=== PATIENT | female | born 1980 | race Caucasian/White ===

== ENCOUNTER 2017-04-23 19:28 | Inpatient (IN) | payer MEDICAID ==
[~2017-04-23] VITALS: Ht 157.5 cm; Wt 57.6 kg
[2017-04-23 21:09] LABS: BASOPHIL % 1.4 % (0-2); PLATELET COUNT 243 x10^3mcL (130-400)
[2017-04-23 21:18] LABS: CARBON DIOXIDE 28.6 mmol/L (21-32); CHLORIDE SERUM 100 mmol/L (98-107); CREATININE SERUM 0.6 mg/dL (0.6-1.0); GFR1 > 60 mL/min; GLUCOSE SERUM 112 mg/dL (74-106); POTASSIUM SERUM 3.6 mmol/L (3.5-5.1); SODIUM SERUM 138 mmol/L (136-145)
[2017-04-23 21:22] LABS: ALBUMIN 3.9 g/dL (3.4-5.0); ALKALINE PHOSPHATASE 77 U/L (46-116); ALT/SGPT 29 U/L (14-59); AST/SGOT 24 U/L (15-37); BILIRUBIN TOTAL 0.4 mg/dL (0.20-1.00); LIPASE 196 IU/L (73-393)
[2017-04-23 21:24] LABS: TOTAL PROTEIN, SERUM 8.3 g/dL (6.4-8.2)
[2017-04-23 21:30] LABS: RED CELL DISTRIBUTION WIDTH 20.9 % (11.5-14.5)
[2017-04-23 21:51] LABS: microscopic required? NO
[2017-04-23 21:59] LABS: rbc morphology (normal/abnorm) ABNORMAL (NORMAL); target cell (codocyte) 2+
[2017-04-23 22:03] LABS: UA SPECIFIC GRAVITY <=1.005 (1.005-1.035); urine erythrocyte NEGATIVE (NEGATIVE)
[2017-04-23 23:05] VITALS: BP 118/67
[2017-04-24] VITALS (7 sets, daily range): BP systolic 91–115; BP diastolic 53–67
[2017-04-24 00:40] LABS: MAGNESIUM 2.5 mg/dL (1.8-2.4); PHOSPHOROUS 4.3 mg/dL (2.5-4.9); T3 TOTAL 1.02 ng/mL
[2017-04-24 00:55] LABS: IRON 16 ug/dL (50-170); TOTAL IRON BINDING CAPACITY 609 ug/dL (250-450)
[2017-04-24 01:13] LABS: FREE T4 1.31 ng/dL (0.76-1.46); FREE THYROXINE INDEX 3.5 ug/dL (1.4-4.5)
[2017-04-24 01:39] LABS: RED BLOOD CELLS 3.56 M/mm3 (4.10-5.10)
[2017-04-24 06:40] LABS: CALCIUM 8.6 mg/dL (8.5-10.1); CARBON DIOXIDE 26.9 mmol/L (21-32); CHLORIDE SERUM 104 mmol/L (98-107); CREATININE SERUM 0.6 mg/dL (0.6-1.0); GFR1 > 60 mL/min; GLUCOSE SERUM 93 mg/dL (74-106); MAGNESIUM 2.4 mg/dL (1.8-2.4); PHOSPHOROUS 4.3 mg/dL (2.5-4.9); POTASSIUM SERUM 3.6 mmol/L (3.5-5.1); SODIUM SERUM 138 mmol/L (136-145)
[2017-04-24 07:15] LABS: PLATELET COUNT 272 x10^3mcL (130-400)
[2017-04-24 07:24] LABS: RED CELL DISTRIBUTION WIDTH 21.4 % (11.5-14.5)
[2017-04-24 08:12] LABS: BAND NEUTROPHIL 2 % (0-10); BASOPHIL 0 % (0-2); MONOCYTE 6 % (0-7); SEGMENTED NEUTROPHILS 49 % (37-75)
[2017-04-24 08:13] LABS: PLATELET MORPHOLOGY PLATELETS NORMAL; rbc morphology (normal/abnorm) ABNORMAL (NORMAL)
[2017-04-25] VITALS (7 sets, daily range): BP systolic 101–122; BP diastolic 41–64
[2017-04-25 07:08] LABS: CALCIUM 8.3 mg/dL (8.5-10.1); CARBON DIOXIDE 25.9 mmol/L (21-32); CHLORIDE SERUM 103 mmol/L (98-107); CREATININE SERUM 0.7 mg/dL (0.6-1.0); GFR1 > 60 mL/min; GLUCOSE SERUM 131 mg/dL (74-106); POTASSIUM SERUM 3.1 mmol/L (3.5-5.1); SODIUM SERUM 137 mmol/L (136-145)
[2017-04-25 07:11] LABS: PLATELET COUNT 247 x10^3mcL (130-400)
[2017-04-25 07:13] LABS: RED CELL DISTRIBUTION WIDTH 21.3 % (11.5-14.5)
[2017-04-25 08:06] LABS: ATYPICAL LYMPH 2 %; BAND NEUTROPHIL 1 % (0-10); BASOPHIL 0 % (0-2); MONOCYTE 5 % (0-7); SEGMENTED NEUTROPHILS 51 % (37-75)
[2017-04-25 08:07] LABS: rbc morphology (normal/abnorm) ABNORMAL (NORMAL)
[2017-04-25 08:08] LABS: ovalocyte/elliptocyte 1+; tear drop cell (dacryocyte) 1+
[2017-04-25 13:44] LABS: PLATELET COUNT 218 x10^3mcL (130-400)
[2017-04-25 13:53] LABS: ATYPICAL LYMPH 1 %; BASOPHIL 0 % (0-2); SEGMENTED NEUTROPHILS 55 % (37-75)
[2017-04-25 13:54] LABS: BAND NEUTROPHIL 2 % (0-10); MONOCYTE 7 % (0-7); rbc morphology (normal/abnorm) ABNORMAL (NORMAL)
[2017-04-25 13:55] LABS: ovalocyte/elliptocyte 1+; tear drop cell (dacryocyte) 1+
[2017-04-26] VITALS (7 sets, daily range): BP systolic 101–115; BP diastolic 49–65
[2017-04-26 01:21] LABS: BASOPHIL % 1.4 % (0-2); PLATELET COUNT 222 x10^3mcL (130-400); RED CELL DISTRIBUTION WIDTH 21.9 % (11.5-14.5)
[2017-04-26 01:36] LABS: rbc morphology (normal/abnorm) ABNORMAL (NORMAL); tear drop cell (dacryocyte) 1+
[2017-04-26 01:37] LABS: ovalocyte/elliptocyte 1+
[2017-04-26 07:16] LABS: BASOPHIL % 0.7 % (0-2); PLATELET COUNT 267 x10^3mcL (130-400)
[2017-04-26 07:27] LABS: RED CELL DISTRIBUTION WIDTH 25.8 % (11.5-14.5)
[2017-04-26 14:19] LABS: rbc morphology (normal/abnorm) ABNORMAL (NORMAL)
[2017-04-26 14:20] LABS: ovalocyte/elliptocyte 1+
[2017-04-27 01:58] VITALS: BP 115/56
[2017-04-27 06:05] VITALS: BP 111/57
[2017-04-27 06:46] LABS: BASOPHIL % 1.2 % (0-2); PLATELET COUNT 281 x10^3mcL (130-400)
[2017-04-27 06:47] LABS: CALCIUM 8.9 mg/dL (8.5-10.1); CARBON DIOXIDE 25.5 mmol/L (21-32); CHLORIDE SERUM 104 mmol/L (98-107); CREATININE SERUM 0.6 mg/dL (0.6-1.0); GFR1 > 60 mL/min; GLUCOSE SERUM 88 mg/dL (74-106); MAGNESIUM 2.4 mg/dL (1.8-2.4); PHOSPHOROUS 4.1 mg/dL (2.5-4.9); POTASSIUM SERUM 3.7 mmol/L (3.5-5.1); SODIUM SERUM 139 mmol/L (136-145)
[2017-04-27 06:53] LABS: RED CELL DISTRIBUTION WIDTH 26.6 % (11.5-14.5)
[2017-04-27 06:55] LABS: rbc morphology (normal/abnorm) ABNORMAL (NORMAL)
[2017-04-27 06:56] LABS: ovalocyte/elliptocyte 1+; tear drop cell (dacryocyte) 1+
[2017-04-27 09:21] VITALS: BP 129/82
[2017-04-27] MEDS ORDERED: FERROUS GLUCON324 M1 PO (14:07)
[2017-04-27] MEDS ORDERED: PHARMASSURE VI500 MG PO (14:07)
[2017-04-27] MEDS ORDERED: COL100 PO (14:10)
[2017-04-27] MEDS ORDERED: NOR10T PO (14:12)
[2017-04-27] MEDS ORDERED: ZOFRAN4 M3 PO (14:12)
[2017-04-27 14:48] VITALS: BP 129/82
== END 2017-04-27 16:04 | disposition home or self-care (01) ==
LOC: ED 19:28 → DU 22:16 → MU 22:44 → DU 22:44 → MU 04-25 11:31 → DU 04-26 05:16 → MU 04-26 17:52
PROVIDERS: Emergency Medicine; Family Medicine; ADMIT Family Medicine
PROC: 30233N1 Transfusion of Nonautologous Red Blood Cells into Peripheral Vein, Percutaneous Approach (ICD-10-PCS; principal; 2017-04-25)
DX: K80.20 Calculus of gallbladder without cholecystitis without obstruction (principal); D61.818 Other pancytopenia; K56.609 Unspecified intestinal obstruction, unspecified as to partial versus complete obstruction; E78.1 Pure hyperglyceridemia; D25.9 Leiomyoma of uterus, unspecified; N83.201 Unspecified ovarian cyst, right side; D50.9 Iron deficiency anemia, unspecified; Z68.24 Body mass index [BMI] 24.0-24.9, adult
CPT/HCPCS: 83880; 84439; 87046; 87046-59; J1885; J2405; J2916; J3480; J7030; J7040; P9016; Q0092; Q0162; Q0163; Q9967

== ENCOUNTER 2018-05-16 23:08 | Inpatient (IN) | payer MEDICAID ==
[~2018-05-16] VITALS: Ht 160 cm; Wt 62.8 kg
[~2018-05-16 23:08] MED LIST: COL100 PO; FERROUS GLUCON324 M1 PO; NOR10T PO; PHARMASSURE VI500 MG PO; ZOFRAN4 M3 PO
[2018-05-16 23:37] VITALS: Ht 160 cm; Wt 62.8 kg
[2018-05-17 02:57] LABS: CALCIUM 8.6 mg/dL (8.5-10.1); CARBON DIOXIDE 25.7 mmol/L (21-32); CHLORIDE SERUM 101 mmol/L (98-107); CREATININE SERUM 0.6 mg/dL (0.6-1.0); GFR1 > 60 mL/min; GLUCOSE SERUM 117 mg/dL (74-106); POTASSIUM SERUM 3.2 mmol/L (3.5-5.1); SODIUM SERUM 139 mmol/L (136-145)
[2018-05-17 03:04] LABS: ALBUMIN 3.9 g/dL (3.4-5.0); ALKALINE PHOSPHATASE 66 U/L (46-116); ALT/SGPT 27 U/L (14-59); AST/SGOT 26 U/L (15-37); BILIRUBIN TOTAL 0.5 mg/dL (0.20-1.00); LIPASE 166 IU/L (73-393); TOTAL PROTEIN, SERUM 7.9 g/dL (6.4-8.2)
[2018-05-17 03:25] LABS: PLATELET COUNT 249 x10^3mcL (130-400)
[2018-05-17 03:26] LABS: BASOPHIL % 1 % (0-2)
[2018-05-17 03:39] LABS: rbc morphology (normal/abnorm) ABNORMAL (NORMAL)
[2018-05-17 07:43] LABS: MAGNESIUM 2.2 mg/dL (1.8-2.4); PHOSPHOROUS 4.2 mg/dL (2.5-4.9)
[2018-05-17 09:17] LABS: BASOPHIL % 1.3 % (0-2); PLATELET COUNT 238 x10^3mcL (130-400)
[2018-05-17 09:25] LABS: RED CELL DISTRIBUTION WIDTH 21.1 % (11.5-14.5)
[2018-05-17 10:35] VITALS: BP 115/63
[2018-05-17 12:30] VITALS: BP 120/60
[2018-05-17 12:47] VITALS: BP 120/60
[2018-05-17 12:57] VITALS: BP 115/63
[2018-05-17 14:23] LABS: rbc morphology (normal/abnorm) ABNORMAL (NORMAL)
[2018-05-17 14:25] LABS: ovalocyte/elliptocyte 2+
[2018-05-17 14:44] LABS: PLATELET COUNT 228 x10^3mcL (130-400)
[2018-05-17 14:48] LABS: RED CELL DISTRIBUTION WIDTH 25.9 % (11.5-14.5)
[2018-05-17 15:30] LABS: SEGMENTED NEUTROPHILS 61 % (37-75)
[2018-05-17 15:31] LABS: BAND NEUTROPHIL 3 % (0-10); MONOCYTE 9 % (0-7)
[2018-05-17 15:33] LABS: ovalocyte/elliptocyte 2+; rbc morphology (normal/abnorm) ABNORMAL (NORMAL); tear drop cell (dacryocyte) 1+
[2018-05-17 15:34] LABS: PLATELET MORPHOLOGY PLATELETS NORMAL
[2018-05-17 17:17] VITALS: BP 125/75
[2018-05-17 20:47] VITALS: BP 117/61
[2018-05-18 06:12] VITALS: BP 108/58
[2018-05-18 06:36] LABS: BASOPHIL % 0.2 % (0-2); PLATELET COUNT 234 x10^3mcL (130-400)
[2018-05-18 06:47] LABS: RED CELL DISTRIBUTION WIDTH 25.2 % (11.5-14.5); rbc morphology (normal/abnorm) ABNORMAL (NORMAL)
[2018-05-18 06:54] LABS: CALCIUM 8.2 mg/dL (8.5-10.1); CARBON DIOXIDE 27.3 mmol/L (21-32); CHLORIDE SERUM 104 mmol/L (98-107); CREATININE SERUM 0.5 mg/dL (0.6-1.0); GFR1 > 60 mL/min; GLUCOSE SERUM 86 mg/dL (74-106); POTASSIUM SERUM 3.9 mmol/L (3.5-5.1); SODIUM SERUM 137 mmol/L (136-145)
[2018-05-18 07:33] VITALS: BP 100/50
[2018-05-18 09:01] LABS: UA SPECIFIC GRAVITY 1.015 (1.005-1.035); microscopic required? YES; urine erythrocyte 2+ (NEGATIVE)
[2018-05-18] MEDS ORDERED: FERROUS GLUCON324 M1 PO (10:31)
[2018-05-18 10:43] VITALS: BP 100/50
[2018-05-18 11:57] VITALS: BP 105/64
== END 2018-05-18 16:01 | disposition home or self-care (01) | DRG 517 ==
LOC: ED 23:08 → DU 05-17 03:55
PROVIDERS: Emergency Medicine; General Practice; Obstetrics & Gynecology
PROC: 30233N1 Transfusion of Nonautologous Red Blood Cells into Peripheral Vein, Percutaneous Approach (ICD-10-PCS; 2018-05-17)
PROC: 0UDB7ZZ Extraction of Endometrium, Via Natural or Artificial Opening (ICD-10-PCS; principal; 2018-05-17 18:00)
DX: D25.9 Leiomyoma of uterus, unspecified (principal); D62 Acute posthemorrhagic anemia; N92.1 Excessive and frequent menstruation with irregular cycle; E87.6 Hypokalemia
CPT/HCPCS: C1758; J1050; J1885; J2060; J2250; J3010; J7030; J7040; P9016; Q0162; Q0163

== ENCOUNTER 2019-03-02 20:20 | Inpatient (IN) | payer MEDICAID ==
[~2019-03-02] VITALS: Ht 162.6 cm; Wt 62.7 kg
[2019-03-02 20:29] VITALS: Ht 162.6 cm; Wt 62.7 kg
--- NOTE | 2019-03-02 21:50 | NUR ---
DR MIRANDA AT THE BEDSIDE FOR MSE.
--- NOTE | 2019-03-02 22:30 | NUR ---
PT BIB SELF C/O C/O PERIUMBILICAL ABDOMINAL PAIN, NAUSEA AND CONSTIPATION X5 DAYS. PT DENIES ANY INJURY OR URINARY ISSUES. PT IS AAOX4, NO DISTRESS NOTED, RESP E/U, SKIN INTACT WARM PINK AND DRY. PT GOWNED AND PLACED ON MONITOR. MSE COMPLETED BY . BED IN LOWEST POSITION, SIDERAIL X2 UP FOR SAFETY, AND CALL GODINEZ WITHIN REACH. WILL CONT TO MONITOR.
--- NOTE | 2019-03-02 22:45 | NUR ---
PT MEEDICATED PER MD ORDERS, SEE EMAR, IV FLUIDS INFUSINGM, NO INFILTRATION TX PAIN NOTED. PT VERBALIZED UNDERSTANDING OF MEDICATION TEACHING.
[2019-03-02 23:13] LABS: PLATELET COUNT 297 x10^3mcL (130-400)
[2019-03-02 23:14] LABS: ALBUMIN 4.5 g/dL (3.4-5.0); ALKALINE PHOSPHATASE 87 U/L (46-116); ALT/SGPT 30 U/L (14-59); AST/SGOT 19 U/L (15-37); BILIRUBIN TOTAL 0.57 mg/dL (0.20-1.00); CALCIUM 8.8 mg/dL (8.5-10.1); CHLORIDE SERUM 102 mmol/L (98-107); CREATININE SERUM 0.6 mg/dL (0.6-1.0); GFR1 > 60 mL/min; GLUCOSE SERUM 110 mg/dL (74-106); LIPASE 141 IU/L (73-393); POTASSIUM SERUM 3.9 mmol/L (3.5-5.1); SODIUM SERUM 139 mmol/L (136-145)
[2019-03-02 23:15] LABS: BASOPHIL % 0 % (0-2); RED CELL DISTRIBUTION WIDTH 20.7 % (11.5-14.5)
[2019-03-02 23:17] LABS: rbc morphology (normal/abnorm) ABNORMAL (NORMAL)
[2019-03-02 23:18] LABS: TOTAL PROTEIN, SERUM 8.7 g/dL (6.4-8.2)
--- NOTE | 2019-03-02 23:30 | NUR ---
PT IN POSITION OF COMFORT, NO DISTRESS NOTED, RESP E/U. AWAITING LABS RESULTS, PT AWARE. WILL CONT TO MONITOR.
[2019-03-02 23:31] LABS: UA SPECIFIC GRAVITY 1.015 (1.005-1.035); microscopic required? YES; urine erythrocyte 1+ (NEGATIVE)
[2019-03-02 23:33] LABS: AMPHETAMINE QUAL UR NONE DETECTED (See below)
[2019-03-03 00:43] LABS: MAGNESIUM 2.1 mg/dL (1.8-2.4)
[2019-03-03 00:45] LABS: CHOLESTEROL/HDL RATIO 3.6
--- NOTE | 2019-03-03 00:58 | NUR ---
PRT STATED SHE WAS "CONSTIPATED" BUT HAD A NORMAL BOWEL MOVEMENT TODAY.
--- NOTE | 2019-03-03 00:58 | NUR ---
REPORT GIVEN TO NEENA DANIELS ON [facility] WHO WILL RESUME FURTHER CARE OF THIS PATIENT.
[2019-03-03 01:46] VITALS: BP 117/61
--- NOTE | 2019-03-03 02:05 | NUR ---
PATIENT RECEIVED FROM ED VIA WHEELCHAIR ACCOMPANIED BY NURSE AND EMT, PATIENT ASSISTED FROM WC TO BED, GOWNED AND POSITIONED SELF COMFORTABLY IN BED.PATIENT ACQUIANTED TO BEDSIDE EQUIPMENTS AND UNIT POLICIES, CALL LIGHT PLACED IN REACH, SAFETY/FALL PRECAUTIONS INITIATED. PATIENT ADMITTED WITH CHEIF COMPLAINT OF ABDOMINAL PAIN/EPIGASTRIC PAIN, FEELING CONSTIPATED, THOUGH LAST BM WAS 03/02 AND SHED STATED IT WAS NORMAL, XR ABDOMEN-REVEALED A RETAINED STOOL IN COLON, DULCOLAX WAS GIVEN IN ED AND UP TO NOW NO BM, PATIENT DENIED N/V.VOMITING BAG GIVEN IN CASE SHE HAD EPISODE. IV TO RT AC SITE NO SIGN OF INFILTRATION, NOTED NS BAG WITH 500 ML LEFT,REGULATED ON A PUMP. PATIENT ALSO HAD COMPLAINED THAT SHE HAD BEEN FEELING EASILY FATIGUE AND WITH GENERALIZED WEAKNESS, ADMISSION H&H=5.01/20, WILL NOTIFY AND INFORMED RESIDENTS, PATIENT DENIED HAVING BLOODY STOOL. HAD HX; OF RECEIVING BLOOD TRANSFUSION IN THE PAST YEAR ON PREVIOUS ADMISSION.PATIENT RATED PAIN AT 2-3/10 NOW, INFORMED ABOUT PAIN MANAGEMENT. WILL CONTINUE TO MONITOR.
--- NOTE | 2019-03-03 02:36 | NUR ---
SPOKE TO DR MORGAN AND REPORTED H&H 5.01/20 , ALSO REPORTED PATIENT HAVING BM ALREADY AND WAS BROWN FORMED MEDIUM STOOL, COLLECTED AND MD WILL ORDER STOOL OB. AWAITS ORDER FOR BLOOD TRANSFUION.
--- NOTE | 2019-03-03 05:06 | NUR ---
PATIENT PRE MEDICATED WITH TYLENOL AND BENADRYL PO PRIOR TO BT. PATIENT EVELYN WAS INFORMED ABOUT MEDS PURPOSE AND ACTION PRIOR. IV SITE TO RAC BLOOD LEAKING, INSERTED NEW IV SITE TO LEFT FOREARM GAUGE 20 , X1 ATTEMPT.
[2019-03-03 05:57] VITALS: BP 107/57
--- NOTE | 2019-03-03 05:59 | NUR ---
FIRST UNIT OF PRBC UNIT #[id number] (DONOR O POSITIVE, PATIENT O POSITIVE)CONFRIMED WITH ANOTHERR NURSE KATY RN, CONFIRMED IDENTIFICATION OF PATIENT WITH RN KATY ALSO. INITIATED AND STARTED THIS TIME, VIATL PRE TAKEN AT 0530, EJ=151/57, HR=77BPM, RR=18BPM, TEMP=98.7, SAT ON RA 99%. PATIENT INFORMED ABOUT BLOOD TRANSFUSION REACTION TO RPORT TO NURSE IMMEDIATELY IF IT OCCURS, PATIENT HAD VRBALIZED UNDERSTANDING.
--- NOTE | 2019-03-03 06:14 | NUR ---
PATIENT HAD AMBULATED TO THE BR WITH STEADY GAIT, COMPLAINED OF DULL OFF AND ON ABDOMINAL/EPIGASTRIC PAIN. IV SITE LFA PATENT AND INTACT, NO SIGN OF INFILTRATION. PATIENT REMAINED NPO EXCEPT MEDS, DOOR SIGN ACTIVATED. SAFETY PRECAUTIONS MAINTAINED. WILL ENDORSE CONTINUITY OF CARE TO INCOMING NURSE.
[2019-03-03 06:59] LABS: CALCIUM 7.9 mg/dL (8.5-10.1); CARBON DIOXIDE 23.3 mmol/L (21-32); CHLORIDE SERUM 108 mmol/L (98-107); CREATININE SERUM 0.6 mg/dL (0.6-1.0); GFR1 > 60 mL/min; GLUCOSE SERUM 101 mg/dL (74-106); POTASSIUM SERUM 3.8 mmol/L (3.5-5.1); SODIUM SERUM 142 mmol/L (136-145)
[2019-03-03 07:02] LABS: PLATELET COUNT 256 x10^3mcL (130-400)
--- NOTE | 2019-03-03 07:15 | NUR ---
RECEIVED PT FROM EXCHANGE ENGINEER. PT AWAKE, ALERT A/OX4. PT ON ROOM AIR WITH NO RESP DISTRESS NOTED. IV ACCESS LFA, CDI INFUSING 1 UNIT PRBC AT 100ML/HR. PT HAS IV TO RAC, SALINE LOCKED. PERIPHERAL PULSES PALPABLE, NO EDEMA NOTED. ACTIVE BS NOTED. NO APPARENT ISSUES WITH ELIMINATION. PT COMPLAINING OF PAIN TO ABDOMEN THAT RADIATES TO BACK. WILL MEDICATE PRN. PT AMBULATORY, SAFETY MEASURES IN PLACE, BED LOW AND LOCKED. CALL LIGHT WITHIN REACH.
[2019-03-03 07:18] LABS: RED CELL DISTRIBUTION WIDTH 20.8 % (11.5-14.5)
[2019-03-03 07:19] LABS: BASOPHIL % 0 % (0-2)
--- NOTE | 2019-03-03 07:25 | NUR ---
BEDSIDE REPORT AND INTRODUCTION PERFORMED WITH INCOMING NURSE VINICIO.
[2019-03-03 07:32] VITALS: BP 123/62
--- NOTE | 2019-03-03 07:45 | NUR ---
PT COMPLAINING OF PAIN TO BACK 12/10. NORCO ADMINISTERED ORDERED PRN (SEE EMAR). WILL CONT TO MONITOR.
[2019-03-03 08:20] LABS: rbc morphology (normal/abnorm) ABNORMAL (NORMAL)
[2019-03-03 08:21] LABS: ovalocyte/elliptocyte 1+
--- NOTE | 2019-03-03 09:00 | NUR ---
PT REPORTS PAIN IS SOMEWHAT BETTER 5/10. 1 UNIT PRBC INFUSING AT THIS TIME.
[2019-03-03 09:55] VITALS: BP 137/52
--- NOTE | 2019-03-03 09:55 | NUR ---
1 UNIT PRBC COMPLETED. NO ADVERSE REACTIONS NOTED. VS: 98.3, RR18, BP 137/52 (100), HR 74.
--- NOTE | 2019-03-03 11:50 | NUR ---
PT GETTING ULTRASOUND AT THE BEDSIDE AT THIS TIME.
--- NOTE | 2019-03-03 12:22 | NUR ---
PT COMPLAINING OF PAIN 10/10 TO ABDOMEN THAT RADIATES TO BACK. NORCO ADMINISTERED ORDERED PRN (SEE EMAR). WILL MONITOR.
[2019-03-03 13:04] LABS: IRON 14 ug/dL (50-170); TOTAL IRON BINDING CAPACITY 544 ug/dL (250-450)
--- NOTE | 2019-03-03 13:30 | NUR ---
PT REPORTS SOME RELIEF FROM BACK PAIN. PT HAS HEADACHE 10/10 AT THIS TIME. TYLENOL ADMINISTERED ORDERED PRN (SEE EMAR). WILL CONTINUE TO MONITOR.
--- NOTE | 2019-03-03 14:30 | NUR ---
PT REPORTS HEADACHE IS BETTER. PAIN 4/10 AT THIS TIME. SAFETY MAINTAINED.
--- NOTE | 2019-03-03 15:26 | NUR ---
Discount pharmacy card and list to low cost medical clinics given to patient by Alejandro.
[2019-03-03 16:30] VITALS: BP 115/55
--- NOTE | 2019-03-03 16:33 | NUR ---
PT COMPLAINING OF PAIN AND DIZZINESS, ASKING FOR PAIN MED. NORCO ADMINISTERED ORDERED PRN (SEE EMAR). ORTHOSTATICS TAKEN. LYING BP 110/68 (78) HR 73. SITTING BP 118/64 (78), HR 75. STANDING UP BP 111/62 (75) HR 77.
--- NOTE | 2019-03-03 16:35 | NUR ---
LAB AT BEDSIDE TO TAKE H/H.
--- NOTE | 2019-03-03 16:42 | NUR ---
(RESIDENT) MADE AWARE PT C/O DIZZINESS AND ORTHOSTATIC VS WERE RELAYED TO HER WELL. SAYS THAT (OBGYN) WAS ALREADY MADE AWARE OF CONSULT AND SHE WILL MESSAGE HIM AGAIN. FORD RN ASSIGNED TO THIS PT MADE AWARE OF ABOVE.
--- NOTE | 2019-03-03 17:05 | NUR ---
CALL FROM THE LAB, PT HGB 6.8. DR JACKSON AWARE. NEW ORDER TO TRANSFUSE SECOND UNIT OF BLOOD.
[2019-03-03 17:14] LABS: ovalocyte/elliptocyte 1+; rbc morphology (normal/abnorm) ABNORMAL (NORMAL); tear drop cell (dacryocyte) 1+
--- NOTE | 2019-03-03 17:25 | NUR ---
VS: TEMP 98.3, BP 125/62 (82), HR 69, RR 18 PRE TRANSFUSION. BENADRYL ADMINISTERED ORDERED. WILL ADMINISTER TYLENOL AT 1830 WHEN NEXT PRN DOSE IS DUE.
--- NOTE | 2019-03-03 17:55 | NUR ---
BLOOD TRANSFUSTION STARTED.
--- NOTE | 2019-03-03 18:10 | NUR ---
AFTER 15 MIN OF START OF TRANSFUSION VS: TEMP 97.7, BP 136/66(88), HR 68, RR 18, O2 SAT 97%. NO ADVERSE REACTION NOTED AT THIS TIME.
--- NOTE | 2019-03-03 18:15 | NUR ---
DR ZENG AT BEDSIDE WITH DR. JACKSON DISCUSSING PLAN OF CARE.
--- NOTE | 2019-03-03 18:58 | NUR ---
PT RECEIVING BLOOD AT THIS TIME. PT STABLE. WILL CONTINUE TO MONITOR AND ENDORSE CARE TO GARDENING MANAGER. SAFETY MAINTAINED.
[2019-03-03 19:45] VITALS: BP 122/68
--- NOTE | 2019-03-03 20:18 | NUR ---
PATIENT RECEIVED VIA BEDSIDE HANDS OFF AND INTRODUCTION AAOX3,SRI LANKAN SPEAKING BUT ABLE TO COMMUNICATE AND GESTURE NEEDS. COMFORTABLE THIS TIME. PATIENT RECEIVING BLOOD TRANSFUSION (PRBC), NO TRANSFUSING REACTION VERBALIZED NOR NOTED, PATIENT INSTRUCTED AND EDUCATED ABOUT BT REACTION TO REPORT IMMEDIATELY TO NURSE WHEN IT OCCURS. IV SITE TO LFA PATENT AND INTACT. COMPLAINED OF DULL ABDOMINAL PAIN, WILL MONITOR.
--- NOTE | 2019-03-03 21:40 | NUR ---
1 UNIT OF PRBC BLOOD TRANSFUSION COMPLETED WITHOUT ADVERSE REACTIONS NOTED OR VERBALIZED BY PT. POST VS: TEMP 99.2 HR 69 RR 18 BP 120/60 SAO2 97% RA.
--- NOTE | 2019-03-04 00:12 | NUR ---
PT IS LYING IN BED, ASLEEP. EASILY AROUSABLE WHEN SPOKEN TO. BREATHING IS EVEN AND UNLABORED. NO SIGNS OF RESP. DISTRESS. CALL LIGHT WITHIN REACH. BED IN LOWEST POSITION. WILL CONTINUE TO MONITIOR.
--- NOTE | 2019-03-04 01:06 | NUR ---
PLACED A CALL TO DR CAMARGO PHONE REGARDING LAS[facility] POST BT, NO CALL BACK YET. WILL FOLLOW UP.
--- NOTE | 2019-03-04 03:39 | NUR ---
COMPLAINED OF ABDOMINAL PAIN RADIATING TO BACK, RATED PAIN AT 7/10, THROBBING, MEDICATED PRN, MADE COMFORTABLE IN BED. WILL MONITOR EFFECTIVENESS.
[2019-03-04 05:47] VITALS: BP 119/61
--- NOTE | 2019-03-04 07:05 | NUR ---
RECEIVED BEDSIDE REPORT FROM EXAM PROCTOR NURSE AT THIS TIME. PATIENT RESTING COMFORTABLY IN BED. NO APPARENT DISTRESS OR DISCOMFORT NOTED. PATIENT BREAHTING EVEN AND UNLABORED. NO RESPIRATORY DISTRESS OR DISCOMFORT NOTED. PATIENT DENIES CHEST PAIN/PRESSURE AT THIS TIME. IV PATENT AND INTACT. ALL QUESTIONS AND CONCERNS ADDRESSED. ALL NEEDS ATTENDED TO. WILL CONTINUE TO MONITOR
--- NOTE | 2019-03-04 07:25 | NUR ---
PT SLEPT IN INTERVALS THROUGHOUT SHIFT WITH NO ACUTE EVENTS OVERNIGHT. COMFORT AND SAFETY MEASURES MAINTAINED. ALL NEEDS ASSESSED AND ATTENDED TO. ENDORSED CARE TO DAY SHIFT NURSE, HOWIE DANIELS.
[2019-03-04 08:00] LABS: BASOPHIL % 0.6 % (0-2); PLATELET COUNT 234 x10^3mcL (130-400)
[2019-03-04 08:02] LABS: RED CELL DISTRIBUTION WIDTH 27.5 % (11.5-14.5)
[2019-03-04 09:08] LABS: rbc morphology (normal/abnorm) ABNORMAL (NORMAL)
[2019-03-04 09:38] VITALS: BP 114/65
--- NOTE | 2019-03-04 10:00 | NUR ---
ALL MORNING MEDICATION ADMINISTERED. PATIENT TOLERATED MEDICATIONS WELL. NO APPARENT ADVERSE EFFECTS NOTED. ALL NEEDS ATTENDED TO. WILL CONTINUE TO MONITOR
--- NOTE | 2019-03-04 13:00 | NUR ---
PATIENT C/O 7/10 BACK PAIN AT THIS TIME. PATIENT MEDICATED WITH NORCO PO PRN. PATIENT TOLERATED MEDICATION WELL. NO APPARENT ADVERSE EFFECTS NOTED. ALL NEEDS ATTENDED TO. WILL CONTINUE TO MONITOR
[2019-03-04] MEDS ORDERED: APAP/HYDROCODON1 T13 PO (13:16)
[2019-03-04 13:39] VITALS: BP 114/65
--- NOTE | 2019-03-04 15:20 | NUR ---
PATIENT STABLE TO BE DISCHARGED TO HOME. DISCHARGE INSTRUCTIONS GIVEN WELL EDUCATION. INSTRUCTED PATIENT ABOUT FOLLOW UP APPOINTMENTS WITH BOTH PCP AND OBGYN. PATIENT VERBALIZES UNDERSTANDING. IV REMOVED WITH CATH INTACT. ID BANDS REMOVED. ALL BELONGINGS WITH PATIENT ALL QUESTIONS AND CONCERNS ADDRESSED. ALL NEEDS ATTENDED TO. AWAITING TRANSPORTATION AT THIS TIME. WILL ESCORT DOWN TO THE LOBBY.
== END 2019-03-04 16:07 | disposition home or self-care (01) | DRG 663 ==
LOC: ED 20:20 → MU 23:48
PROVIDERS: Emergency Medicine; Internal Medicine; ADMIT General Practice
PROC: 30233N1 Transfusion of Nonautologous Red Blood Cells into Peripheral Vein, Percutaneous Approach (ICD-10-PCS; principal; 2019-03-03)
DX: D50.0 Iron deficiency anemia secondary to blood loss (chronic) (principal); N17.0 Acute kidney failure with tubular necrosis; D25.9 Leiomyoma of uterus, unspecified; R80.9 Proteinuria, unspecified; N93.8 Other specified abnormal uterine and vaginal bleeding; Z68.22 Body mass index [BMI] 22.0-22.9, adult
CPT/HCPCS: 82962; 83880; G0378; J1885; J2405; J7030; J7050; P9016; Q0163